=== PATIENT | female | born 1965 | race Two or more races ===

== ENCOUNTER 2018-04-04 20:13 | Emergency (ER) | payer OTHER ==
[~2018-04-04] VITALS: Ht 160 cm; Wt 68.9 kg
[2018-04-04 21:05] VITALS: BP 154/99
[2018-04-04] MEDS ORDERED: ACETAMINOPHEN 325 MG TAB PO ONE (22:15)
[2018-04-04] MEDS ORDERED: IBUPROFEN 800 MG TAB PO ONE (22:15)
[2018-04-04 22:42] LABS: Urine Bacteria NONE SEEN /hpf (None Seen); Urine Blood Negative /uL (Negative); Urine Mucus FEW (None Seen); Urine Specific Gravity 1.033 (1.001-1.035); Urine WBC 5 /hpf (0 - 5)
== END 2018-04-04 23:06 | disposition home or self-care (01) ==
LOC: ER 20:20
DX: S22.41XA Multiple fractures of ribs, right side, initial encounter for closed fracture (principal); N39.0 Urinary tract infection, site not specified; M54.5 Low back pain; X50.1XXA Overexertion from prolonged static or awkward postures, initial encounter; Y93.89 Activity, other specified; Y92.69 Other specified industrial and construction area as the place of occurrence of the external cause; Y99.8 Other external cause status
CPT/HCPCS: 71101; 72070; 72100; 81001; 81025

== ENCOUNTER 2025-05-10 07:50 | Day surgery (SDC) | payer MEDICAID ==
[2025-05-08 09:52] LABS: Hematocrit 47.2 % (36.0-46.0); Hemoglobin 15.6 g/dL (12.2-16.2); Mean Corpuscular Hemoglobin 28.9 pg (28.0-32.0); Mean Corpuscular Volume 87.3 fL (80.0-100.0); Nucleated Red Blood Cells % 0.1 %
[2025-05-08 10:09] LABS: INR 1.04 (0.9-1.15); Partial Thromboplastin Time 30.9 SEC (24.5-34.5); Prothrombin Time 11.0 sec (9.3-11.8)
[2025-05-08 10:40] LABS: Alanine Aminotransferase 24 U/L (7-40); Albumin 4.1 g/dL (3.2-4.8); Alkaline Phosphatase 139 U/L (46-116); Anion Gap 8 (5-15); BUN/Creatinine Ratio 19.4 (10.0-20.0); Bilirubin, Total 0.8 mg/dL (0.2-1.0); Blood Urea Nitrogen 13 mg/dL (9-23); Calcium 9.5 mg/dL (8.7-10.4); Carbon Dioxide 28 mmol/L (20-31); Chloride 106 mmol/L (98-107); Glucose 99 mg/dL (74-106); Potassium 4.1 mmol/L (3.5-5.1); Sodium 142 mmol/L (136-145); Total Protein 8.1 g/dL (5.7-8.2)
[~2025-05-10 07:50] MED LIST: ACET-1304 PO; AMLO1TAB22 PO; ATOR20TA PO
[2025-05-10] MEDS: fentaNYL CITRATE 100 MCG/2 ML VL ONE (08:42)
[2025-05-10] MEDS: MIDAZOLAM HCL 2MG/2ML 2ml VIAL (1mg/ml) ONE ×2 (08:42→08:55)
--- NOTE | 2025-05-10 09:05 | DVHNC2 ---
Procedure - DATE: MAY 10, 2025 PROCEDURE PERFORMED BY: IGOR WYATT MD REFERRING PROVIDER: SHEILA TURPIN MD PROCEDURE PERFORMED: 1.ESOPHAGOGASTRODUODENOSCOPY WITH MODERATE SEDATION 2. ESOPHAGOGASTRODUODENOSCOPY WITH BIOPSY 3. COLONOSCOPY WITH MODERATE SEDATION PREPROCEDURE DIAGNOSIS: 1. HISTORY OF H.PYLORI DID NOT COMPLETE TREATMENT 2. COLON CANCER SCREENING POSTPROCEDURE DIAGNOSIS: 1. MILD EROSIVE ESOPHAGITIS, Z-LINE AT 35 CM 2. 2 CM HIATAL HERNIA 3. MILD GASTRITIS 4. INTERNAL HEMORRHOIDS OTHERWISE NORMAL COLONOSCOPY INDICATIONS FOR PROCEDURE: THE PATIENT IS A 59-YEAR-OLD FEMALE WHO PRESENTS FOR OUTPATIENT ENDOSCOPY FOR GASTRITIS, HISTORY OF H.PYLORI AND DID NOT COMPLETE TREATMENT, AND COLON CANCER SCREENING MEDICATIONS USED: 8 MG OF VERSED IV AND 100 MCG OF FENTANYL IV DETAILS OF THE PROCEDURE: Informed consent was obtained after risks benefits and alternatives were discussed at length with the patient. The patient gave consent to the procedure as well as a medication used for sedation. She was placed in the left lateral decubitus position. An Olympus endoscope was inserted into the oropharynx advanced into the esophagus, then into the stomach, then into the duodenal bulb and duodenum. The duodenal bulb and duodenum were normal. The scope was then withdrawn. The patient had [id number] erosive gastritis. Biopsies were taken for pathology and H pylori. The scope was then withdrawn. Retroflexion showed a small hiatal hernia. The scope was then withdrawn. The Z-line was at 35 cm. The patient had mild erosive esophagitis. The scope was then withdrawn procedure completed. The patient tolerated the procedure well. The patient remained in the left lateral decubitus position. Digital rectal exam showed internal hemorrhoids. An Olympus variable torsion pediatric co lonoscope was inserted into the rectum and advanced to the cecum. The cecum was identified by the ileocecal valve and the appendiceal orifice. The scope was then withdrawn. The prep was good with only small amounts and stool. [place] bowel prep score of nine was noted. There were no large polyps, masses, strictures, or arteriovenous malformation seen. Retroflexion showed internal hemorrhoids. More than six months withdrawal time was noted. The patient tolerated the procedure well. COLONOSCOPY START TIME: 854 CECUM TIME: 855 COLONOSCOPY END TIME: 902 IMPRESSION: 1. SMALL INTERNAL HEMORRHOIDS OTHERWISE NORMAL COLONOSCOPY 2. MILD GASTRITIS, MILD EROSIVE ESOPHAGITIS AND A 2 CM HIATAL HERNIA RECOMMENDATIONS: 1. FOLLOW UP WITH GI CLINIC FOR PROCEDURE PATHOLOGY RESULTS 2. HIGH-FIBER DIET 3. REPEAT COLONOSCOPY IN 10 YEARS UNLESS OTHERWISE INDICATED BY SYMPTOMS OR FAMILY HISTORY 4. ANTI-REFLUX PRECAUTIONS 5. PATIENT SHOULD HAVE CAUTION WITH ASPIRIN, NSAIDS ANTICOAGULANTS, SPICY FOOD, CAFFEINE, TOBACCO, [place] AND TOMATOES 6. TREAT FOR H.PYLORI BIOPSIES WERE POSITIVE 7. CONSIDER FURTHER WORKUP IF SYMPTOMS OF ABDOMINAL PAIN PERSIST OR WORSEN. 8. PATIENT SHOULD BE ON A PROTON PUMP INHIBITOR I WOULD LIKE TO THANK DR. TURPIN FOR THIS REFERRAL IGOR WYATT MD May 10, 2025 09:05
[2025-05-10 09:06] VITALS: PULSE 86; RESP 14; TEMP 98.3; O2SAT 96
[2025-05-10 09:35] VITALS: BP 134/71; PULSE 76; RESP 15; O2SAT 95
== END 2025-05-10 09:50 | disposition home or self-care (01) ==
LOC: GI 07:50
PROVIDERS: ATTEND Specialist
DX: Z12.11 Encounter for screening for malignant neoplasm of colon (principal); R10.13 Epigastric pain; K44.9 Diaphragmatic hernia without obstruction or gangrene; K29.50 Unspecified chronic gastritis without bleeding; K64.8 Other hemorrhoids; K21.00 Gastro-esophageal reflux disease with esophagitis, without bleeding; I10 Essential (primary) hypertension; E78.5 Hyperlipidemia, unspecified; Z82.49 Family history of ischemic heart disease and other diseases of the circulatory system; Z88.1 Allergy status to other antibiotic agents; Z98.890 Other specified postprocedural states; Z79.899 Other long term (current) drug therapy
CPT/HCPCS: 36415; 43239; 45378; 80053; 85025; 85610; 85730; 88305; 88313; 88342; A4649; J2250; J3010; 99152